=== PATIENT | female | born 1985 | race Caucasian/White ===

== ENCOUNTER 2022-06-20 14:45 | Outpatient (CLI) | payer BC, SELFPAY ==
[2022-06-20 17:15] LABS: Chloride* 103 mmol/L (96-114); Sodium* 138 mmol/L (135-149)
[2022-06-20 17:16] LABS: Potassium* 4.4 mmol/L (3.6-5.1)
[2022-06-20 17:18] LABS: Cholesterol* 150 mg/dL (90-199)
[2022-06-20 17:19] LABS: Blood Urea Nitrogen* 17 mg/dL (5-24); Carbon Dioxide* 25 mmol/L (20-32); Creatinine* 0.7 mg/dL (0.5-1.5); Estimated Glomerular Filt Rate 116 ml/min; Glucose* 96 mg/dL (60-115); HDL Cholesterol* 47 mg/dL (>=50); LDL Cholesterol Calculated 90 mg/dL (<100); Triglycerides* 67 mg/dL (40-149)
== END 2022-06-20 14:46 | disposition home or self-care (01) ==
PROVIDERS: PCP Family Medicine; Visit Provider Family Medicine
DX: R42 Dizziness and giddiness (principal); R53.1 Weakness; Z13.6 Encounter for screening for cardiovascular disorders
CPT/HCPCS: 80048; 80061; 84443

== ENCOUNTER 2023-05-12 09:10 | Outpatient (CLI) | payer OTHER, SELFPAY | END 2023-05-12 09:11 | disposition home or self-care (01) | PROVIDERS: PCP Family Medicine; Visit Provider Family Medicine | DX: I95.9 Hypotension, unspecified (principal) | CPT/HCPCS: 80048; 84439; 84443; 85025 ==

== ENCOUNTER 2023-12-07 08:35 | Outpatient (CLI) | payer OTHER, SELFPAY | END 2023-12-07 08:36 | disposition home or self-care (01) | LOC: NFLDREF 12-12 09:46 | PROVIDERS: PCP Family Medicine; Referring Provider Family Medicine; Visit Provider Family Medicine | DX: E03.9 Hypothyroidism, unspecified (principal) | CPT/HCPCS: 84439; 84443 ==

== ENCOUNTER 2024-02-29 08:10 | Outpatient (CLI) | payer OTHER, SELFPAY | END 2024-02-29 08:11 | disposition home or self-care (01) | LOC: FBOREF 08:11 | PROVIDERS: PCP Family Medicine; Visit Provider Family Medicine | DX: E03.9 Hypothyroidism, unspecified (principal) | CPT/HCPCS: 84439; 84443 ==

== ENCOUNTER 2024-11-29 13:26 | Outpatient (CLI) | payer OTHER, SELFPAY | END 2024-11-29 13:27 | disposition home or self-care (01) | LOC: NFLDREF 13:32 | PROVIDERS: PCP Family Medicine; Visit Provider Obstetrics & Gynecology | DX: N92.0 Excessive and frequent menstruation with regular cycle (principal); E03.9 Hypothyroidism, unspecified; N94.6 Dysmenorrhea, unspecified | CPT/HCPCS: 84443 ==

== ENCOUNTER 2024-12-05 07:54 | Outpatient (CLI) | payer OTHER, SELFPAY ==
--- NOTE | 2024-12-05 08:15 | CRLHL7_ITS ---
For Patients: As a result of the Century Cures Act, medical imaging exams and procedure reports are released immediately into your electronic medical record. You may view this report before your referring provider. If you have questions, please contact your health care provider. INDICATION: Excessive infrequent menstruation with regular cycle TECHNIQUE: Transabdominal and transvaginal scanning was performed. Transvaginal scanning was performed to optimally evaluate the endometrium and adnexa. Ovarian blood flow was evaluated with color-flow and pulsed Doppler. COMPARISON: None FINDINGS: The uterus is normal in size and shape but appears to be arcuate. The uterus measures 7.2 x 3.9 x 5.1 cm. No myometrial mass is evident. The endometrial stripe is normal in thickness at stent mm. The ovaries are normal in size and contain a number of follicles. The right ovary measures 2.3 x 1.3 x 1.0 cm and left 3.9 x 2.5 x 1.9 cm. Ovarian blood flow is demonstrated with color-flow and pulsed Doppler. No adnexal mass is evident. No free fluid is demonstrated. IMPRESSION: 1. Normal endometrial stripe thickness at 10 mm. 2. Apparent arcuate uterus. Dictated by Jenaro Torres MD @ 12/05/2024 1:36:49 PM (Electronically Signed)
== END 2024-12-05 07:55 | disposition home or self-care (01) ==
LOC: US 07:55
PROVIDERS: PCP Family Medicine; Visit Provider Obstetrics & Gynecology
DX: N92.0 Excessive and frequent menstruation with regular cycle (principal)
CPT/HCPCS: 76830; 76856; 93976

== ENCOUNTER 2025-01-14 07:19 | Day surgery (SDC) | payer OTHER, SELFPAY ==
[2025-01-14 07:38] LABS: Ur HCG Qualitative* Negative (Negative)
[2025-01-14 07:48] VITALS: BP 113/78; PULSE 50; RESP 16; TEMP 36.6; O2SAT 100
[2025-01-14 07:49] VITALS: BMI 23.8
[2025-01-14] MEDS: SODIUM CHLORIDE 0.9 % (FLUSH) 10 ML SYRINGE IVF (07:55)
[2025-01-14] MEDS: LACTATED RINGERS 500 ML 500 ML 100 ML IV ×2 (07:55→09:46)
--- NOTE | 2025-01-14 08:18 | W.PM.H&PU ---
History & Physical Update History & Physical Update H&P Reviewed and patient assessed: No changes noted
--- NOTE | 2025-01-14 08:18 | PM.PROC ---
Procedure Note Time Seen by Provider: 09:35 Date Seen: 01/14/25 Date of procedure: 01/14/[address] [facility] bill your pro fee for this procedure?: Yes Procedure: Preoperative diagnosis: 39 yo with hypermenorrhea and dysmenorrhea. Arcuate uterus. Postoperative diagnosis: Same. Procedure: Hysteroscopy, dilation and curettage, hydro thermal endometrial ablation. Anesthesia: Mac and paracervical block. Surgeon: Karis Mccain Assist: None Estimated blood loss: 2 mL IV Fluid: 400 mL Specimen: Endometrial curettings, sent to path. Findings: On exam under anesthesia: The cervix and vagina appear normal. The uterus was anteverted position, approximately 10 week size, mobile and without masses or nodularity palpable. Adnexa were without mass or fullness palpable bilaterally. On hysteroscopy: Arcuate endometrium, no other abnormalities. The uterus sounded to 10 cm. Procedure: [] was taken to the operating room where conscious sedation was found to be adequate. She was placed in a dorsal lithotomy position and an exam under anesthesia was performed with the findings stated above. She was then prepped and draped in a normal sterile manner. An a bivalve is sterile speculum was placed in the vaginal canal. A paracervical block was placed using 0.5% Marcaine: 5 mL were injected at the 4 and 8 o'clock positions on the cervix. A long Allis clamp was placed on the anterior lip of the cervix. The cervix was then dilated to Hegar 6. The Truclear hysteroscope was advanced into the uterus. A diagnostic hysteroscopy performed with normal saline as the insufflation medium. Findings are stated above. The Truclear incisor was then advanced into the camera. And the curettage performed with this incisor. The curettage took approximately 1 min. The cavity appeared normal once the curettage was performed completed. Total saline for insufflation: 310mL. Deficit: 100mL. The hysteroscope was then removed. The hydrothermal ablation adapter was advanced over the hysteroscope. The hysteroscope with adapter was then advanced into the uterus. The hydro thermal ablation instrument was activated and the ablation took place over 10 with an additional 1.5 minute cool down period before the hysteroscope was removed. The hysteroscope was then removed. The Allis clamp removed from the anterior lip of the cervix. Silver nitrate was used to obtain hemostasis The patient tolerated this procedure well. Sponge, lap and instrument counts were correct x2 at the end of the procedure and the patient was taken to the recovery area in stable condition. The patient received Toradol 30 mg IV prior to the start of the ablation.
[2025-01-14] MEDS: KETOROLAC 30 MG/ML inj IVP (08:52)
[2025-01-14] MEDS: BUPIVACAINE 0.5% 30 ML INJECTION (09:13)
[2025-01-14 09:35] VITALS: BP 85/51; PULSE 48; RESP 16; TEMP 36.2; O2SAT 98
--- NOTE | 2025-01-14 09:44 | W.ANESCHARGE ---
Anesthesia Charges Start Date/Time Anesthesia Start Date: 01/14/25 Anesthesia Start Time: 08:44 Stop Date/Time Anesthesia Stop Date: 01/14/25 Anesthesia Stop Time: 09:38 Coding CPT Codes CPT Codes: ANESTH HYSTEROSCOPE/GRAPH - 15540 ([id number]) P2 - PATIENT W/MILD SYST DISEASE, QK - EMBROIDERY PATTERNMAKER 2-4 CNCRNT ANES PROC, QX - SILO FILLER SVC W/ MD MED DIRECTION
[2025-01-14 09:45] VITALS: BP 95/42; PULSE 49; RESP 16; O2SAT 99
[2025-01-14 10:00] VITALS: BP 109/93; PULSE 46; RESP 16; O2SAT 100
[2025-01-14] MEDS: OXYCODONE 5 MG TABLET PO (10:05)
--- NOTE | 2025-01-14 10:11 | W.ANESCHARGE ---
Anesthesia Charges Start Date/Time Anesthesia Start Date: 01/14/25 Anesthesia Start Time: 08:44 Stop Date/Time Anesthesia Stop Date: 01/14/25 Anesthesia Stop Time: 09:38 Coding CPT Codes CPT Codes: ANESTH HYSTEROSCOPE/GRAPH - 21442 ([id number]) QK - RECEIVING ROOM CLERK 2-4 CNCRNT ANES PROC, QX - RETORT OR CONDENSER PRESS OPERATOR SVC W/ MD MED DIRECTION, P2 - PATIENT W/MILD SYST DISEASE
[2025-01-14 10:15] VITALS: BP 120/73; PULSE 46; RESP 16; O2SAT 99
[2025-01-14 10:30] VITALS: BP 117/75; PULSE 55; RESP 16; O2SAT 99
== END 2025-01-14 10:53 | disposition home or self-care (01) ==
PROVIDERS: PCP Family Medicine; Visit Provider Obstetrics & Gynecology
PROC: 0UF98ZZ Fragmentation in Uterus, Via Natural or Artificial Opening Endoscopic (ICD-10-PCS; CPT 58563; principal; 2025-01-14 08:15)
DX: N92.0 Excessive and frequent menstruation with regular cycle (principal); N94.6 Dysmenorrhea, unspecified; Q51.810 Arcuate uterus
CPT/HCPCS: 58563; 00952; 81025; 88305; A9270; J0665; J1885; J2405; J2704; J3490; J7120

== ENCOUNTER 2025-01-27 13:30 | Outpatient (CLI) | payer OTHER, SELFPAY ==
[2025-01-27 13:39] LABS: Clue Cells <20% Clue Cells Seen (None Seen); Trichomonas No Trichomonas Seen (None Seen); Yeast No Yeast Seen (None Seen)
== END 2025-01-27 13:31 | disposition home or self-care (01) ==
LOC: NFLDREF 13:30
PROVIDERS: PCP Family Medicine; Visit Provider Obstetrics & Gynecology
DX: N89.8 Other specified noninflammatory disorders of vagina (principal)
CPT/HCPCS: 87210

== ENCOUNTER 2025-03-26 08:43 | Outpatient (CLI) | payer OTHER, SELFPAY | END 2025-03-26 08:44 | disposition home or self-care (01) | PROVIDERS: PCP Family Medicine; Visit Provider Family Medicine | DX: I95.0 Idiopathic hypotension (principal) | CPT/HCPCS: 80048; 83735 ==

== ENCOUNTER 2025-09-19 09:43 | Outpatient (CLI) | payer OTHER, SELFPAY | END 2025-09-19 09:44 | disposition home or self-care (01) | PROVIDERS: PCP Family Medicine; Visit Provider Family Medicine | DX: R53.83 Other fatigue (principal); E03.9 Hypothyroidism, unspecified | CPT/HCPCS: 80048; 84443; 85025 ==